=== PATIENT | male | born 1985 | race Asian ===

== ENCOUNTER 2016-08-07 18:33 | Emergency (ER) | payer OTHER ==
[~2016-08-07] VITALS: Ht 175.3 cm; Wt 70.0 kg
[2016-08-07 18:45] VITALS: BP 129/90; PULSE 106; RESP 18; O2SAT 97
--- NOTE | 2016-08-07 18:55 | ED.REPORT ---
HPI-Extremity Problem Upper Date of Service Aug 07, 2016 ED Provider: Be Beckford MD 31 year old male who presents to the ER with concern for DVT. Pt had a back surgery July 15 with IV in the L arm. He states that he has "bumps that come and go" around the area of the IV site with pain. Pt denies fever, chills, numbness, tingling, CP, and SOB. No history of clotting disorder. Nursing Notes Stated Complaint: POSSIBLE BLOOD CLOT IN LEFT ARM Chief Complaint: Extremity Trauma Nursing Notes Reviewed: Yes Allergies: Coded Allergies: Sulfa (Sulfonamide Antibiotics) (Verified Allergy, Severe, SOB, hives, 08/07) amoxicillin (Verified Allergy, Mild, Diarrhea, 08/07/16) General Time Seen by MD: 18:52 Chief Complaint Other (L arm pain) Hx Obtained From: Patient Arrived By: Walk-in Symptom Duration: Intermittent Location: : Forearm left Quality: Painful Severity: Current: Mild Severity: Maximum: Moderate Pertinent Negative: Pt denies other symptoms Past Medical History Past Medical History None reported Past Surgical History Back surgery Smoking History Unknown if Ever Smoker Review of Systems Constitutional: Denies: Fever Musculoskeletal: Reports: Extremity pain Skin: Denies Bruising, Denies Diaphoresis, Denies Rash Neurologic: Denies: Dizziness, Lightheaded, Numbness Complete sys rev & neg: except as marked. Physical Exam Initial Vital Signs Vital Signs (First) Date Time Temp Pulse Resp B/P Pulse Ox O2 Delivery O2 Flow Rate FiO2 08/07/16 18:45 36.4 106 18 129/90 97 Room Air General/Constitutional: Well-developed, Well-nourished Head / Eyes: Atraumatic, Normocephalic, PERRL ENT: Mucous membranes moist, Conjunctiva normal, No scleral icterus Respiratory: Breath sounds normal, Clear to auscultation, No respiratory distress Cardiovascular: Regular rate & rhythm, Heart sounds normal, Intact distal pulses (Good radial pulses ) Abdomen / GI: Soft, Non-tender, No distention Skin: Warm, Dry, No cyanosis Neurologic: Alert, Oriented, Nonfocal Psychiatric: Mood/affect normal, Behavior normal, Normal thought content Trauma - Neck Specific: Positive: Immobilized - C Collar RUE atrauamtic. No significant swelling of L forearm. Palpable chord about his left forearm where he had his IV placed. NV intact. Warm and well perfused. Sensation intact. Interpretation & Diagnostics Lab Results Interpretation Result Diagram: 08/07/16190708/07/161907 Test 08/07/16 19:08 White Blood Count 5.9th/mm3 (3.8-10.1) Red Blood Count 5.36mil/mm3 (4.40-5.80) Hemoglobin 14.1g/dL (13.8-17.2) Hematocrit 43.0% (41.0-50.0) Mean Corpuscular Volume 80.2fL (81-100) Mean Corpuscular Hemoglobin 26.3pg (27.0-35.0) Mean Corpuscular Hemoglobin Concent 32.8% (32.0-37.0) Red Cell Distribution Width 12.9% (12.3-15.4) Platelet Count 298bil/L (150-400) Neutrophils (%) (Auto) 54.7% (40-74) Lymphocytes (%) (Auto) 34.3% (14-46) Monocytes (%) (Auto) 8.0% (4-12) Eosinophils (%) (Auto) 2.4% (0-5) Basophils (%) (Auto) 0.3% (0-3) Prothrombin Time 10.1sec (8.1-12.5) Prothromb Time International Ratio 0.95ratio Sodium Level 138mEq/L (134-144) Potassium Level 3.9mEq/L (3.5-5.2) Chloride Level 100mEq/L (97-108) Carbon Dioxide Level 24mmol/L (18-29) Blood Urea Nitrogen 17mg/dL (6-20) Creatinine 0.98mg/dL (0.76-1.27) Estimat Glomerular Filtration Rate 95mL/min (>59) Glucose Level 108mg/dL (60-99) Calcium Level 9.3mg/dL (8.5-10.1) Hold Bautista Top Tube Received (Received) Lab Results Interpretation: Upper extremity US: superficial thrombus no dvt Re-Eval/Medical Decision Med Decision/Clinical Course 31 year old male who presents to the ER with concern for DVT. Pt had a back surgery July 15 with IV in the L arm. He states that he has "bumps that come and go" around the area of the IV site with pain. Pt denies fever, chills, numbness, tingling, CP, and SOB. No history of clotting disorder. Here in the emergency department the patient is afebrile w/ stable vital signs and examination as above. CBC, CMP and coags unremarkable Right upper extremity ultrasound obtained as below: 1. No evidence of deep venous thrombosis in the left upper extremity. 2. Superficial thrombophlebitis demonstrated in the left wrist in the area of palpable abnormality. No evidence of DVT, no evidence of abscess or cellulitis, neurovascularly intact , recommend warm compresses, pulse extremity care physician in the next 1-2 weeks to consider repeat ultrasound to assess for any progression to deep venous system, at this time patient is appropriate for discharge home. Prior to discharge follow-up and return precautions were reviewed in detail with the patient who verbalized understanding and agreement with the plan. The patient was discharged in stable condition. Re-Evaluation/Progress : Time of Eval: 20:03 Re-Evaluation/Progress Note: Discussed plan for d/c and f/u. All questions addressed. Counseled Regarding: Diagnosis, Lab results, Need for follow-up, When/why to return to ED Discharge & Departure Impression: Primary Impression: Superficial venous thrombosis of left arm Additional Impression: Forearm pain Laterality: left Qualified Code: M79.632 - Pain in left forearm Disposition: Home Discharge Condition All VS Reviewed: Yes Condition: Stable Additional Instructions: Thank you for seeking care at [facility] emergency room. On ultrasound there was a superficial thrombus visualized but no DVT's which would require blood thinners or further treatment. You can continue to use a hot compress on the area. Our primary goal today in the ED was to evaluate you for any life-threatening conditions. Your evaluation was reassuring. You should follow-up with your primary doctor in the next week or two. You should return to the ED immediately if you develop redness, warmth, tenderness, severe swelling, fevers, vomiting, cough, shortness of breath, chest pain, lightheadedness, weakness or any other concerning signs or symptoms. Thank you for letting us partake in your care today. Referrals: NOPCP (PCP) Scribe Attestation Portions of this note were transcribed by Lizette Munoz. I, (Dr. Be Beckford ) personally performed the history, physical exam and medical decision-making; I reviewed and confirmed the accuracy of the information in the transcribed note. Signed by: Lizette Munoz. [place], 08/07/2016, 2006 Be Beckford MD Aug 07, 2016 18:55 Lizette Munoz Aug 07, 2016 20:07
[2016-08-07 19:19] LABS: BASOPHILS % (AUTO) 0.3 % (0-3); EOSINOPHILS % (AUTO) 2.4 % (0-5); Mean Corpuscular Hemoglobin 26.3 pg (27.0-35.0); Mean Corpuscular Volume 80.2 fL (81-100); NEUTROPHILS % (AUTO) 54.7 % (40-74); Platelet Count 298 bil/L (150-400)
[2016-08-07 19:35] LABS: INR 0.95 ratio
--- NOTE | 2016-08-07 20:01 | DRSVH ---
PROCEDURE: US VENOUS ARM DUPLEX UNILATERAL, LEFT INDICATIONS: r/o dvt TECHNIQUE: Real-time imaging, as well as color and pulse Doppler interrogation, was performed of the left upper extremity deep veins from the inferior neck to the antecubital fossa. COMPARISON: None. FINDINGS: The internal jugular vein, visualized portions of the subclavian vein, axillary, and brach ial veins are free of intraluminal thrombus. Where physically possible, the veins are normally compr essible. Color and pulse Doppler demonstrate normal intraluminal flow, with expected phasicity and p ulsatility. Additional scanning of the cephalic and basilic veins of the superficial system demonstr ate normal compressibility, without thrombus. There is superficial thrombus demonstrated within dist al veins along the dorsal ulnar aspect of the left wrist corresponding to patient's palpable abnormal ities. IMPRESSION: 1. No evidence of deep venous thrombosis in the left upper extremity. 2. Superficial thrombophlebitis demonstrated in the left wrist in the area of palpable abnormality. Dictated by: Noé Viera M.D. on 08/07/2016 at 19:58 Approved by: Noé Viera M.D. on 08/07/2016 at 19:59
[2016-08-07 21:21] VITALS: BP 130/88; PULSE 100; RESP 17; O2SAT 98
== END 2016-08-07 21:22 | disposition home or self-care (01) ==
LOC: SED 18:33
DX: I82.612 Acute embolism and thrombosis of superficial veins of left upper extremity (principal); Z98.890 Other specified postprocedural states; Z88.1 Allergy status to other antibiotic agents; Z88.2 Allergy status to sulfonamides